=== PATIENT | female | born 1970 | race Caucasian/White ===

== ENCOUNTER 2022-07-23 20:26 | Emergency (ER) | payer OTHER ==
[2022-07-23 20:35] VITALS: BP 111/70; PULSE 91; RESP 19; TEMP 98.6; BMI 24.3
== END 2022-07-23 22:14 | disposition home or self-care (01) ==
LOC: JERFT 20:26 → JER 20:26 → JERFT 22:14
PROC: 0HBQXZZ Excision of Finger Nail, External Approach (ICD-10-PCS; principal; 2022-07-23)
DX: S60.457A Superficial foreign body of left little finger, initial encounter (principal); W45.8XXA Other foreign body or object entering through skin, initial encounter
CPT/HCPCS: 99282-25

== ENCOUNTER 2023-03-11 16:13 | Emergency (ER) | payer OTHER ==
[2023-03-11 16:35] VITALS: BP 122/72; PULSE 95; RESP 18; TEMP 98.6; BMI 22.9
[2023-03-11] MEDS ORDERED: ACETAMINOPHEN 500 MG TABLET (FP) PO ONE (17:33)
[2023-03-11] MEDS ORDERED: ACETAMINOPHEN 500 MG TABLET (FP) ONE (17:37)
== END 2023-03-11 18:42 | disposition home or self-care (01) ==
LOC: JERFT 16:13 → JER 16:13 → JERFT 18:42
DX: M54.2 Cervicalgia (principal); R51.9 Headache, unspecified; R22.1 Localized swelling, mass and lump, neck; W22.8XXA Striking against or struck by other objects, initial encounter; Y92.096 Garden or yard of other non-institutional residence as the place of occurrence of the external cause
CPT/HCPCS: 70490-TC; 99284-25

== ENCOUNTER 2025-03-20 15:03 | Emergency (ER) | payer OTHER ==
[2025-03-20 15:12] VITALS: BP 132/71; PULSE 77; RESP 20; TEMP 98.5; BMI 21.6
[2025-03-20] MEDS ORDERED: TETRACAINE 0.5% OPHTH SOLN 2 ML BOTTLE ONE (15:29)
[2025-03-20] MEDS: FLUORESCEIN NA 1 EA STRIP OD ONE (15:56)
[2025-03-20] MEDS: TETRACAINE 0.5% OPHTH SOLN 2 ML BOTTLE OD ONE (15:57)
== END 2025-03-20 15:35 | disposition home or self-care (01) ==
LOC: JER 15:03
DX: H57.11 Ocular pain, right eye (principal); Z77.098 Contact with and (suspected) exposure to other hazardous, chiefly nonmedicinal, chemicals
CPT/HCPCS: 99283-25